=== PATIENT | male | born 1980 | race Caucasian/White ===

== ENCOUNTER 2017-08-08 02:30 | Emergency (ER) | payer OTHER ==
[~2017-08-08] VITALS: Ht 180.3 cm; Wt 79.4 kg
[~2017-08-08 02:30] MED LIST: ACETAMINOPHEN-1 EAC1 PO; ACIPHEX 20 MG T20 MG PO; AMOXICILLIN 50500 MG PO; AMOXICILLIN500 M1; AMOXICILLIN875 MG PO; APAP500 PO; AZITHROMYCIN 2250 MG PO; BACTRIM DS TAB1 EACH PO; CARISOPRODOL 3350 MG PO; CLEOCIN HCL150 MG PO; CLONIDINE PO; DARVOCET-N 1001 EAC1 PO; DARVOCET-N 1001 EACH PO; EC-NAPROSYN500 MG PO; FLEXERIL PO; HYDROCODON-ACE1 EAC7 PO; HYDROCODONE-APA1 TA1 PO; IBUPROFEN 200200 M1 PO; IBUPROFEN 600600 M1 PO; IBUPROFEN 800800 M1 PO; IBUPROFEN 800800 MG PO; KEFLEX500 MG PO; LIDOCAINE VISC100 M1 MM; LIDODERM 5%1 PATCH TOP; LORTAB 5 MG/5001 TAB PO; MAGIC MOUTHWASH SWISH&SPIT; MOBIC7.5 MG PO; NEURONTIN 300300 M1 PO; NOHOMEMEDICATIONS; NORCO 5-325 TA1 EAC1 PO; NORCO 5-325 TA1 EACH PO; NORCO 7.5-3251 EACH PO; NORFLEX100 MG PO; PENICILLIN V P500 MG PO; PENICILLIN VK250 MG PO; PERCOCET PO; PREDNISONE 20 M20 MG PO; RELAFEN500 MG PO; ROBITUSSIN DM118 ML PO; TRAMADOL 50 MG50 MG PO; TRIAMCINOLONE A80 G2 TOP; ULTRAM 50MG TAB50 MG PO; VICODIN 5-5001 EACH PO
[2017-08-08] MEDS ORDERED: BACTRIM DS TAB1 EACH PO (03:49)
[2017-08-08] MEDS ORDERED: FLAGYL500 M1 PO (03:49)
[2017-08-08] MEDS ORDERED: HYDROCODONE-AP1 EAC6 PO (03:50)
[2017-08-08 05:15] VITALS: BP 146/83
== END 2017-08-08 05:35 | disposition left against medical advice (07) ==
LOC: M.ERS 02:30
DX: S60.511A Abrasion of right hand, initial encounter (principal); S60.512A Abrasion of left hand, initial encounter; F17.210 Nicotine dependence, cigarettes, uncomplicated; W55.01XA Bitten by cat, initial encounter; Y93.89 Activity, other specified; Y92.89 Other specified places as the place of occurrence of the external cause; Y99.8 Other external cause status

== ENCOUNTER 2017-10-01 19:22 | Emergency (ER) | payer OTHER ==
[~2017-10-01] VITALS: Ht 180.3 cm; Wt 75.7 kg
[~2017-10-01 19:22] MED LIST changes: +FLAGYL500 M1 PO; +HYDROCODONE-AP1 EAC6 PO
[2017-10-01 19:23] VITALS: BP 125/84
[2017-10-01 19:55] LABS: CALCIUM 8.9 mg/dL (8.5-10.1); CREATININE 0.8 mg/dL (0.6-1.3)
[2017-10-01] MEDS ORDERED: ATIVAN1 MG PO (19:56)
--- NOTE | 2017-10-02 11:27 | EKG ---
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 : 1980 Requested By: Jeanette Dawson Order Number: [id number] MD: Sarath Sharma Measurements Intervals [place] Rate: 67 P: 66 [place]: 124 QRS: 12 QRSD: 98 T: 40 QT: 364 QTc: 385 Interpretive Statements Sinus rhythm Baseline wander in lead(s) II,V3,V4,V5 Compared to ECG 02/16/2017 20:57:38 No significant changes Electronically Signed On 10-02-2017 11:27:08 CDT by Sarath Sharma [email or web address] <ELECTRONICALLY SIGNED> By: Sarath Sharma MD, [facility] 10/02/17 1127 29 29 Sarath Sharma MD, [facility] /EPI
== END 2017-10-01 20:09 | disposition home or self-care (01) ==
LOC: M.ERS 19:22
PROVIDERS: Emergency Medicine
DX: F11.23 Opioid dependence with withdrawal (principal); F17.210 Nicotine dependence, cigarettes, uncomplicated

== ENCOUNTER 2017-12-27 13:17 | Emergency (ER) | payer OTHER ==
[~2017-12-27] VITALS: Ht 175.3 cm; Wt 84.8 kg
[~2017-12-27 13:17] MED LIST changes: +ATIVAN1 MG PO
[2017-12-27 13:33] LABS: ABSOLUTE EOSINOPHILS 0.1 thou/uL (0.0-0.7); ABSOLUTE LYMPHOCYTES 1.4 thou/uL (0.8-5.3); ABSOLUTE MONOCYTES 0.5 thou/uL (0.0-1.2); ABSOLUTE NEUTROPHILS 5.5 thou/uL (1.6-8.1); BASOPHILS 0.5 %; EOSINOPHILS 1.9 %; HEMATOCRIT 43.4 % (42.0-52.0); LYMPHOCYTES 18.1 %; MCH 31.3 pg (26.0-34.0); MCHC 34.6 g/dL (28.0-37.0); MCV 90.5 fL (80.0-100.0); MONOCYTES 7.1 %; MPV 7.8 fl. (7.2-11.1); NUCLEATED RBCS 0 /100WBC; PLATELET COUNT* 289 thou/uL (150-400); POLYS 72.4 %; RBC 4.79 mil/uL (4.50-6.00); RDW-CV 13.1 % (10.5-14.5); WBC 7.5 thou/uL (4.0-11.0)
[2017-12-27 13:53] LABS: APTT 30.3 Seconds (25.0-31.3)
[2017-12-27 14:11] LABS: ANION GAP 9 mmol/L (7-16); BUN 22 mg/dL (7-18); CHLORIDE 103 mmol/L (98-107); CO2 27 mmol/L (21-32); CREATININE 0.8 mg/dL (0.6-1.3); GLUCOSE 105 mg/dL (70-99); POTASSIUM 4.1 mmol/L (3.5-5.1); SODIUM 139 mmol/L (136-145)
[2017-12-27 14:30] LABS: ALBUMIN 3.8 g/dL (3.4-5.0); ALKALINE PHOSPHATASE 91 U/L (46-116); CK-MB MASS 4.8 ng/mL (<0.5-3.6); LIPASE 81 U/L (73-393); MAGNESIUM 2.1 mg/dL (1.8-2.4); NT-PRO BRAIN NAT PEPTIDE 41 pg/mL (<300); SGOT 28 U/L (15-37); SGPT 28 U/L (30-65); TOTAL BILIRUBIN 0.7 mg/dL (<0.1-1.0); TOTAL PROTEIN 7.3 g/dL (6.4-8.2); TROPONIN-I LEVEL <0.06 ng/mL (<0.06)
[2017-12-27 14:37] VITALS: BP 124/84
--- NOTE | 2017-12-28 09:46 | EKG ---
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 12/28/17 0946 1320 1320 Sarath Sharma MD, [facility] /EPI
== END 2017-12-27 14:39 | disposition home or self-care (01) ==
LOC: M.ERS 13:17
PROVIDERS: Family Medicine
DX: R07.89 Other chest pain (principal); F17.210 Nicotine dependence, cigarettes, uncomplicated

== ENCOUNTER 2018-03-08 14:35 | Emergency (ER) | payer OTHER ==
[~2018-03-08] VITALS: Ht 180.3 cm; Wt 77.1 kg
[2018-03-08 15:04] LABS: ABSOLUTE LYMPHOCYTES 1.7 thou/uL (0.8-5.3); ABSOLUTE MONOCYTES 0.8 thou/uL (0.0-1.2); ABSOLUTE NEUTROPHILS 6.1 thou/uL (1.6-8.1); BASOPHILS 0.4 %; EOSINOPHILS 0.5 %; HEMATOCRIT 44.8 % (42.0-52.0); HEMOGLOBIN 15.5 gm/dL (14.0-18.0); MCH 31.3 pg (26.0-34.0); MCHC 34.6 g/dL (28.0-37.0); MCV 90.5 fL (80.0-100.0); MONOCYTES 8.9 %; MPV 7.9 fl. (7.2-11.1); NUCLEATED RBCS 0 /100WBC; PLATELET COUNT* 272 thou/uL (150-400); POLYS 70.2 %; RBC 4.95 mil/uL (4.50-6.00); RDW-CV 12.9 % (10.5-14.5); WBC 8.7 thou/uL (4.0-11.0)
[2018-03-08 15:12] LABS: ANION GAP 6 mmol/L (7-16); BUN 21 mg/dL (7-18); CALCIUM 8.9 mg/dL (8.5-10.1); CHLORIDE 103 mmol/L (98-107); CO2 28 mmol/L (21-32); CREATININE 0.8 mg/dL (0.6-1.3); GLUCOSE 107 mg/dL (70-99); POTASSIUM 4.2 mmol/L (3.5-5.1); SODIUM 137 mmol/L (136-145)
[2018-03-08 15:23] LABS: ALKALINE PHOSPHATASE 85 U/L (46-116); LIPASE 135 U/L (73-393); NT-PRO BRAIN NAT PEPTIDE 48 pg/mL (<300); SGOT 33 U/L (15-37); SGPT 28 U/L (30-65); TOTAL BILIRUBIN 0.3 mg/dL (<0.1-1.0); TOTAL PROTEIN 7.7 g/dL (6.4-8.2); TROPONIN-I LEVEL <0.06 ng/mL (<0.06)
[2018-03-08 15:58] LABS: URINE BILIRUBIN NEGATIVE (Negative); URINE BLOOD NEGATIVE (Negative); URINE CLARITY CLEAR; URINE COLOR YELLOW; URINE GLUCOSE-RANDOM NEGATIVE (Negative); URINE KETONES TRACE (Negative); URINE LEUKOCYTES-REFLEX NEGATIVE (Negative); URINE NITRITE-REFLEX NEGATIVE (Negative); URINE PROTEIN NEGATIVE (Negative); URINE SPECIFIC GRAVITY 1.025 (1.005-1.030); URINE UROBILINOGEN 0.2 E.U./dl (0.2-1.0)
[2018-03-08] MEDS ORDERED: CLONIDINE0.1 PO (16:04)
[2018-03-08] MEDS ORDERED: DOXYCYCLINE 10100 MG PO (16:04)
[2018-03-08 16:39] VITALS: BP 129/84
--- NOTE | 2018-03-09 16:59 | EKG ---
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
== END 2018-03-08 16:39 | disposition home or self-care (01) ==
LOC: M.ERS 14:35
PROVIDERS: Emergency Medicine Emergency Medical Services
DX: N39.0 Urinary tract infection, site not specified (principal); R07.89 Other chest pain; F17.210 Nicotine dependence, cigarettes, uncomplicated

== ENCOUNTER 2020-10-22 18:00 | Emergency (ER) | payer OTHER ==
[~2020-10-22] VITALS: Ht 180.3 cm; Wt 77.1 kg
[~2020-10-22 18:00] MED LIST changes: +CLONIDINE0.1 PO; +DOXYCYCLINE 10100 MG PO
[2020-10-22 18:02] VITALS: BP 133/79
--- NOTE | 2020-10-23 14:11 | EKG ---
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: : 1980 Requested By: Roc Barrientos Order Number: [id number] MD: Sarath Sharma Measurements Intervals [place] Rate: 70 P: 44 [place]: [id number] QRS: 22 QRSD: 96 T: 45 QT: 379 QTc: 409 Interpretive Statements Sinus rhythm Baseline wander in lead(s) V3 Compared to ECG 03/08/2018 14:38:53 no change Electronically Signed On 10-23-2020 14:11:05 CDT by Sarath Sharma [email or web address] <ELECTRONICALLY SIGNED> By: Sarath Sharma MD, [facility] 10/23/20 1411 1805 1805 Sarath Sharma MD, [facility] /EPI
== END 2020-10-22 18:13 | disposition home or self-care (01) ==
LOC: M.ERS 18:00
DX: R07.89 Other chest pain (principal); F17.210 Nicotine dependence, cigarettes, uncomplicated